=== PATIENT | female | born 1965 | race Caucasian/White ===

== ENCOUNTER → 2020-09-18 | Outpatient (CLI) | payer BC ==
[2020-09-18 19:55] LABS: BASOPHILS ABSOLUTE AUTO 0.08 K/mm3 (0.00-0.23); BASOPHILS PERCENT AUTO 1 % (0-2); EOSINOPHILS ABSOLUTE AUTO 0.22 K/mm3 (0.00-0.68); EOSINOPHILS PERCENT AUTO 4 % (0-6); Hematocrit 41.3 % (33.0-51.0); Hemoglobin 12.9 g/dL (11.5-16.0); IMMATURE GRAN ABSOLUTE AUTO 0.01 K/mm3 (0.00-0.10); IMMATURE GRAN PERCENT AUTO 0 % (0-1); LYMPHOCYTES ABSOLUTE AUTO 1.83 K/mm3 (0.84-5.20); LYMPHOCYTES PERCENT AUTO 30 % (21-46); MONOCYTES ABSOLUTE AUTO 0.62 K/mm3 (0.16-1.47); MONOCYTES PERCENT AUTO 10 % (4-13); Mean Corpuscular HGB 27.8 pg (26.0-34.0); Mean Corpuscular HGB Conc 31.2 g/dL (31.5-36.5); Mean Corpuscular Volume 89 fL (80-100); NEUTROPHILS ABSOLUTE AUTO 3.38 K/mm3 (1.96-9.15); NEUTROPHILS PERCENT AUTO 55 % (41-73); Platelet Count 234 K/mm3 (150-400); RDW Coefficient Variation 13.8 % (11.7-14.2); RDW Standard Deviation 45.2 fL (35.1-46.3); Red Blood Cell Count 4.64 M/mm3 (3.80-5.20); White Blood Cell Count 6.14 K/mm3 (4.00-11.30)
[2020-09-18 20:25] LABS: CHOL/HDL RATIO 2.8; Cholesterol 199 mg/dL (50-200); HDL Cholesterol 72 mg/dL (>39); LDL/HDL RATIO 1.5; Low Density Lipoprotein Chol 105 mg/dL (0-110); Triglycerides 108 mg/dL (30-160); Very Low Density Lipoprot Chol 21 mg/dL (6-32)
[2020-09-18 21:30] LABS: Albumin, Blood 3.9 g/dL (3.4-5.0); Albumin/Globulin Ratio 0.8 (0.8-1.8); Bilirubin, Total 0.3 mg/dL (0.1-1.0); Bun/Creatinine Ratio 20.6 (12.0-20.0); Calcium, Blood 8.4 mg/dL (8.5-10.1); Creatinine, Blood 1.02 mg/dL (0.40-1.00); Globulin, Blood 4.7 g/dL (2.2-4.0); Potassium, Blood 3.7 mmol/L (3.5-5.5); Total Protein, Blood 8.6 g/dL (6.4-8.2)
== END | disposition home or self-care (01) ==
LOC: LAB SHORT 19:18 → LAB 19:18
PROVIDERS: Family Medicine
DX: Z13.6 Encounter for screening for cardiovascular disorders (principal); I10 Essential (primary) hypertension
CPT/HCPCS: 80053; 80061; 85025

== ENCOUNTER → 2023-02-20 | Outpatient (CLI) | payer OTHER ==
[2023-02-20 19:49] LABS: CHOL/HDL RATIO 2.5; Cholesterol 173 mg/dL (50-200); HDL Cholesterol 69 mg/dL (>39); LDL/HDL RATIO 1.3; Low Density Lipoprotein Chol 92 mg/dL (0-110); Triglycerides 62 mg/dL (30-160); Very Low Density Lipoprot Chol 12 mg/dL (6-32)
== END | disposition home or self-care (01) ==
LOC: LAB SHORT 18:39 → LAB 18:39
PROVIDERS: Nurse Practitioner Family
DX: Z13.220 Encounter for screening for lipoid disorders (principal); Z13.29 Encounter for screening for other suspected endocrine disorder; J45.909 Unspecified asthma, uncomplicated; R73.01 Impaired fasting glucose
CPT/HCPCS: 80061; 83036; 83880; 84443

== ENCOUNTER 2023-03-05 08:47 | Inpatient (IN) | payer OTHER ==
[~2023-03-05] VITALS: Ht 160 cm; Wt 89.8 kg
[2023-03-05 09:36] LABS: BASOPHILS ABSOLUTE AUTO 0.09 K/mm3 (0.00-0.23); BASOPHILS PERCENT AUTO 1 % (0-2); EOSINOPHILS ABSOLUTE AUTO 0.66 K/mm3 (0.00-0.68); EOSINOPHILS PERCENT AUTO 8 % (0-6); Hematocrit 42.2 % (33.0-51.0); IMMATURE GRAN ABSOLUTE AUTO 0.06 K/mm3 (0.00-0.10); IMMATURE GRAN PERCENT AUTO 1 % (0-1); LYMPHOCYTES ABSOLUTE AUTO 1.82 K/mm3 (0.84-5.20); LYMPHOCYTES PERCENT AUTO 22 % (21-46); MONOCYTES PERCENT AUTO 12 % (4-13); Mean Corpuscular HGB 27.8 pg (26.0-34.0); Mean Corpuscular HGB Conc 30.8 g/dL (31.5-36.5); Mean Corpuscular Volume 90 fL (80-100); Mean Platelet Volume 12.4 fL (9.1-12.4); NEUTROPHILS ABSOLUTE AUTO 4.82 K/mm3 (1.96-9.15); NEUTROPHILS PERCENT AUTO 57 % (41-73); Platelet Count 220 K/mm3 (150-400); RDW Coefficient Variation 14.1 % (11.7-14.2); RDW Standard Deviation 46.5 fL (35.1-46.3); Red Blood Cell Count 4.68 M/mm3 (3.80-5.20); White Blood Cell Count 8.45 K/mm3 (4.00-11.30)
[2023-03-05 09:56] LABS: Albumin, Blood 3.7 g/dL (3.4-5.0); Albumin/Globulin Ratio 0.7 (0.8-1.8); Bilirubin, Total 0.4 mg/dL (0.1-1.0); Bun/Creatinine Ratio 17.5 (12.0-20.0); Calcium, Blood 8.9 mg/dL (8.5-10.1); Creatinine, Blood 0.8 mg/dL (0.40-1.00); Potassium, Blood 4.1 mmol/L (3.5-5.5); Total Protein, Blood 8.7 g/dL (6.4-8.2)
[2023-03-05 10:05] LABS: Influenza A, PCR NEGATIVE (NEGATIVE); Influenza B, PCR NEGATIVE (NEGATIVE); Resp Syncytial Virus, PCR NEGATIVE (NEGATIVE); SARS-Cov-2 (COVID-19) PCR, MMC NEGATIVE (NEGATIVE)
[2023-03-05 12:00] LABS: Adenovirus Not Detected (NOT DETECT); Bordetella pertussis Not Detected (NOT DETECT); Chlamydophila pneumoniae Not Detected (NOT DETECT); Coronavirus 229E Not Detected (NOT DETECT); Coronavirus HKU1 Not Detected (NOT DETECT); Coronavirus NL63 Not Detected (NOT DETECT); Coronavirus OC43 Not Detected (NOT DETECT); Human Metapneumovirus Not Detected (NOT DETECT); Human Rhinovirus/Enterovirus Detected (NOT DETECT); Influenza A/2009-H1 Not Detected (NOT DETECT); Influenza A/H1 Not Detected (NOT DETECT); Influenza A/H3 Not Detected (NOT DETECT); Influenza B Not Detected (NOT DETECT); Mycoplasma pneumoniae Not Detected (NOT DETECT); Parainfluenza Virus 1 Not Detected (NOT DETECT); Parainfluenza Virus 2 Not Detected (NOT DETECT); Parainfluenza Virus 3 Not Detected (NOT DETECT); Parainfluenza Virus 4 Not Detected (NOT DETECT); Respiratory Syncytial Virus Not Detected (NOT DETECT); SARS-Cov-2 (COVID-19), BioFire Not Detected (NOT DETECT)
[2023-03-05] MEDS ORDERED: GABA300 PO (12:58)
[2023-03-05] MEDS ORDERED: ALBU90OI INH (12:59)
[2023-03-05] MEDS ORDERED: FLUT1DIS5 INH (12:59)
[2023-03-05] MEDS ORDERED: BENZ100A PO (13:00)
[2023-03-05] MEDS ORDERED: Norco 10-325 T1 EACH PO (13:01)
[2023-03-05] MEDS ORDERED: BUME1 PO (13:02)
[2023-03-05] MEDS ORDERED: DULO60 PO (13:02)
[2023-03-05] MEDS ORDERED: CYCL10 PO (13:03)
[2023-03-05] MEDS ORDERED: POTA10T PO (13:04)
[2023-03-05] MEDS ORDERED: OMEP20ER PO (13:32)
[2023-03-05] MEDS ORDERED: DICLOFENAC SOD100 G1 TOP (13:57)
--- NOTE | 2023-03-05 16:50 | NUR ---
PT ADMITED TO ROOM 349 FROM ED AT 1249, WEARING 3L OXYGEN, SATS 96%- CURRENTLY RESP EVEN UNLABORED, DIM IN BASES, SLIGHT EXP WHEEZE. RR 18, STATES SHE FEELS MARKEDLY BETTER AND BREATHING BETTER SINCE NEBULIZER SHE HAD IN ED. DC ORIENTED TO ROOM SET UP AND CALL LIGHT. SPEAKING TO STAFF TO OBTAIN PT HISTORY
--- NOTE | 2023-03-05 16:53 | NUR ---
CALLED CERAMIC PAINTER 1445-PT HAD ACUTE ASTHMA ATTACK- RT BEGAN HOUR LONG CURRY GARNER, DR DR PLATT TO BEDSIDE ORDERD HYDRALAZINE 10MG IV FOR HTN, ORDER FOR 1 GM MAGNESIUM, AND SOLUMEDROL DOSE TO BE ADMIN NOW. PT SITTING AT EDGE OF BED, OXYGEN INCREASED FROM 3 TO 5L, (SATS ON 3L 92%)- PT TX TO PCU 15 AT 1505 RELATED TO ACUTE ASTHMATIC ATTACK IN WHICH DUONEB STARTED AND CONTINUED IN RESP DISTRESS WITH STRIDOR, RR 24, CLEARING VERY LITTLE AIR UPPER AIRWAY SEVERELY TIGHT AND DIM BASES. INSP/EXP STRIDOR/LOUD AUD WHEEZE.
--- NOTE | 2023-03-05 18:02 | NUR ---
SHIFT SUMMARY; TO PCU FROM MEDICAL FLOOR AFTER RAPID RESPONSE. 1 HOUR NEB IN PROGRESS WHEN BROUGHT TO ROOM. A/A/OX4, L/S WHEEZY T/O. RT AT BEDSIDE. 1G MAG STARTED PER ORDERS. SPEAKING FULL SENTENCES. SATS 95% ON 2L NC FOR REMAINDER OF SHIFT. AMBULATED TO RESTROOM WITH SBA WITHOUT DIFFICULTY. PLEASANT AND COOPERTIVE WITH CARE, WILL CONTINUE TO MONITOR AND TREAT UNTIL CHANGE OF SHIFT.
[2023-03-06 03:29] LABS: Hemoglobin 12.4 g/dL (11.5-16.0); Mean Corpuscular HGB Conc 31.8 g/dL (31.5-36.5); Mean Corpuscular Volume 88 fL (80-100); Mean Platelet Volume 12.1 fL (9.1-12.4); Platelet Count 210 K/mm3 (150-400); RDW Coefficient Variation 13.9 % (11.7-14.2); RDW Standard Deviation 44.7 fL (35.1-46.3); Red Blood Cell Count 4.43 M/mm3 (3.80-5.20); White Blood Cell Count 11.56 K/mm3 (4.00-11.30)
[2023-03-06 03:50] LABS: Bun/Creatinine Ratio 23.8 (12.0-20.0); Calcium, Blood 8.9 mg/dL (8.5-10.1); Creatinine, Blood 0.72 mg/dL (0.40-1.00)
--- NOTE | 2023-03-06 05:48 | NUR ---
Assumed care of patient at 1900. A/Ox4, independent in room. Reports headache 05/09, tylenol given with minimal relief. Maintains over 92% on 3-4L NC, LS wheeze t/o with ROBLES. Medicated for air hunger x1 this shift. ST on tele 110's. Denies CP/pressure, VSS. Strong +2 pulses t/o. Reports constipation, PRN ordered. Will report to dayshift RN.
--- NOTE | 2023-03-06 18:40 | NUR ---
SHIFT SUMMARY; ASSUMED CARE AT 0700. A/A/OX4 DURING SHIFT. BREATHING TX PER RT ORDERS, 3L 02 VIA NC. AMBULATES TO RESTROOM, REPOSITIONS SELF IN BED NEEDED, PLEASANT AND COOPERATIVE WITH CARE. L/S DIM-WHEEZY, VSS, WILL CONTINUE TO MONITOR AND TREAT UNTIL CHANGE OF SHIFT.
--- NOTE | 2023-03-07 05:02 | NUR ---
SHIFT SUMMARY PT IS A&OX4, SR ON TELE, IND IN THE ROOM, AND O2 HAS BEEN TITRAITED DOWN TO 2.5L NC FROM 4L NC W/ SP02 >90%. PT HAS HAD NO COMPLAINTS THIS SHIFT, COOPERATIVE WITH CARE, HAS NOT HAD SOB OR ANGINA, AND CALLS APPROPRIATELY. BED IN LOW, CALL LIGHT IN REACH. SEE NOTES FOR ANY UPDATES, I WILL CONTINUE TO PROVIDE CARE UNTIL SHIFT REPORT IS HANDED OFF TO THE ONCOMING SHIFT RN.
--- NOTE | 2023-03-07 18:31 | NUR ---
SHIFT SUMMARY NO ACUTE CHANGES THIS SHIFT. PT A&OX4. SP02>90% ON ON 2.5L AT START OF SHIFT. ABLE TO WEEN TO RA. CURRENTLY SITTING 95% ON RA. TELEMETRY SHOWS NSR, HR 70'S-90'S. VSS. PT DENIED PAIN. UP TO BATHROOM TO VOID INDEPENDENTLY. SITTING AT SIDE OF BED, COLORING. CALL LIGHT IN REACH.
--- NOTE | 2023-03-08 10:47 | NUR ---
ASSUMPTION OF CARE: PATIENT IS AFEBRILE, A/O X 4, NO CHEST PAIN/PRESSURE OR SOB. PATIENT WAS TAKEN OF NC AND SATURATING ABOVE 92%. SR 70-90'S. PATIENT HAD O2 HOME EVAL AND DID NOT NEED ANY AT THIS TIME. PATIENT WAS SEEN BY HOSPITALIST, PATIENT IN NO ACUTE DISTRESS, APPROPRIATE FOR DISCHARGE. PATIENT HAS NO QUESTIONS COMMENTS OR CONCERNS THAT HAVE NOT BEEN ADRESSED. PATIENT WAS EDUCATED FOR 30 MINUTES OR MORE, ON MEDICATIONS, DISEASE PROCESS, OXYGEN DEMAND, AND LIFESTYLE CHANGES. NO CONCERNS FROM THIS RN AT THIS TIME.
[2023-03-08] MEDS ORDERED: MIRALAX17 GM PO (11:49)
[2023-03-08] MEDS ORDERED: IPRAT-ALBUT 0.5-3 ML INH (11:49)
[2023-03-08] MEDS ORDERED: PRED20 PO (11:51)
--- NOTE | 2023-03-08 13:05 | NUR ---
DISCHARGE SUMMARY: PATIENT HAS BEEN DISCHARGED WITH PREDNISONE, DUONEB, MIRALAX PRESCRIPTIONS, AND DME OF NEBULIZER NO CHANGES FROM ASSUMPTION OF CARE EXCEPT: ON RA SATURATIONS >93%. NO ACTIVE OR PASSIVE SIGNS OF SOB. PATIENT WAS WALKED OUT BY THIS RN STILL DENYING CHEST PAIN PRESSURE OR SOB. MEDICATIONS FAXED TO [facility]. PATIENT ACCEPTABLE TO DIRECTOR TREASURER MEDICATIONS TOMORROW. MAILROOM COORDINATOR ALSO FAXED DME Rx TO [facility]. [facility] TO BRING NEBULIZER AFTER CALL TO PATIENT. PATIENT AWARE OF DISCHARGE INSTRUCTIONS ALONG WITH SON WHO WAS PRESENT. NO QUESTIONS COMMENTS OR CONCERNS FROM EITHER.
== END 2023-03-08 12:13 | disposition home or self-care (01) | DRG 193 ==
LOC: ER 08:47 → MEDS 10:50 → PCU 15:16
PROVIDERS: Emergency Medicine; ADMIT Internal Medicine
DX: J12.89 Other viral pneumonia (principal); J96.01 Acute respiratory failure with hypoxia; R65.10 Systemic inflammatory response syndrome (SIRS) of non-infectious origin without acute organ dysfunction; M54.9 Dorsalgia, unspecified; G89.29 Other chronic pain; J45.909 Unspecified asthma, uncomplicated; B97.10 Unspecified enterovirus as the cause of diseases classified elsewhere; B97.89 Other viral agents as the cause of diseases classified elsewhere; Z20.822 Contact with and (suspected) exposure to COVID-19; Z88.0 Allergy status to penicillin; Z88.1 Allergy status to other antibiotic agents
CPT/HCPCS: 0202U; 0241U; 36415; 70360; 71045; 80048; 80053; 84145; 84484; 85025; 85027; 93005; 93010; 94640; 94644; 94664; 94760; 94761; 94762; 96365; 96366; 96375; 99285-25; A9270; J0360; J1100; J1650; J1956; J2270; J2920; J2930; J3475

== ENCOUNTER → 2024-01-05 | Outpatient (CLI) | payer OTHER ==
[~2024-01-05] MED LIST: ALBU90OI INH; BENZ100A PO; BUME1 PO; CYCL10 PO; DICLOFENAC SOD100 G1 TOP; DULO60 PO; FLUT1DIS5 INH; GABA300 PO; IPRAT-ALBUT 0.5-3 ML INH; MIRALAX17 GM PO; Norco 10-325 T1 EACH PO; OMEP20ER PO; POTA10T PO; PRED20 PO
== END ==
LOC: EDSTATUS 09:01 → LAB 16:57 → LAB SHORT 16:57
DX: R05.1 Acute cough (principal)
CPT/HCPCS: 87070; 87205

== ENCOUNTER 2024-01-11 07:38 | Day surgery (SDC) | payer OTHER | END 2024-01-11 23:44 | disposition home or self-care (01) | LOC: CT 07:38 | DX: R07.89 Other chest pain (principal); Z88.0 Allergy status to penicillin; Z88.8 Allergy status to other drugs, medicaments and biological substances | CPT/HCPCS: 75574; Q9967 ==

== ENCOUNTER → 2024-03-24 | Outpatient (CLI) | payer OTHER | END | disposition home or self-care (01) | LOC: LAB 17:10 → LAB SHORT 17:10 | DX: I10 Essential (primary) hypertension (principal) ==

== ENCOUNTER → 2024-12-26 | Outpatient (CLI) | payer OTHER ==
[2024-12-27 10:58] LABS: BASOPHILS ABSOLUTE AUTO 0.05 K/mm3 (0.00-0.23); BASOPHILS PERCENT AUTO 1 % (0-2); EOSINOPHILS ABSOLUTE AUTO 0.18 K/mm3 (0.00-0.68); EOSINOPHILS PERCENT AUTO 3 % (0-6); Hematocrit 36.6 % (33.0-51.0); Hemoglobin 11.6 g/dL (11.5-16.0); IMMATURE GRAN ABSOLUTE AUTO 0.03 K/mm3 (0.00-0.10); IMMATURE GRAN PERCENT AUTO 1 % (0-1); LYMPHOCYTES ABSOLUTE AUTO 1.38 K/mm3 (0.84-5.20); LYMPHOCYTES PERCENT AUTO 24 % (21-46); MONOCYTES ABSOLUTE AUTO 0.63 K/mm3 (0.16-1.47); MONOCYTES PERCENT AUTO 11 % (4-13); Mean Corpuscular HGB 29.4 pg (26.0-34.0); Mean Corpuscular HGB Conc 31.7 g/dL (31.5-36.5); Mean Corpuscular Volume 93 fL (80-100); Mean Platelet Volume 12.4 fL (9.1-12.4); NEUTROPHILS PERCENT AUTO 61 % (41-73); Platelet Count 209 K/mm3 (150-400); RDW Coefficient Variation 13.4 % (11.7-14.2); RDW Standard Deviation 46.4 fL (35.1-46.3); Red Blood Cell Count 3.94 M/mm3 (3.80-5.20); White Blood Cell Count 5.77 K/mm3 (4.00-11.30)
[2024-12-27 12:02] LABS: Alanine Aminotransfer (ALT/SGP 26 U/L (12-78); Albumin, Blood 3.7 g/dL (3.4-5.0); Alk Phos 119 U/L (50-136); Anion Gap 9 mmol/L (3-11); Aspartate Aminotrans (AST/SGOT 21 U/L (12-37); Bilirubin, Total 0.2 mg/dL (0.1-1.0); Blood Urea Nitrogen 17 mg/dL (8-24); Bun/Creatinine Ratio 19.3 (12.0-20.0); CHOL/HDL RATIO 2.6; CO2, Blood 30 mmol/L (21-32); Calcium, Blood 8.5 mg/dL (8.5-10.1); Chloride, Blood 106 mmol/L (98-108); Cholesterol 228 mg/dL (50-200); Creatinine, Blood 0.88 mg/dL (0.40-1.00); Globulin, Blood 3.7 g/dL (2.2-4.0); Glomerular Filtration Rate 75 (60-); Glucose, Blood 79 mg/dL (70-99); HDL Cholesterol 89 mg/dL (>39); LDL/HDL RATIO 1.4; Low Density Lipoprotein Chol 123 mg/dL (0-110); Potassium, Blood 4.2 mmol/L (3.5-5.5); Sodium, Blood 141 mmol/L (136-145); Total Protein, Blood 7.4 g/dL (6.4-8.2); Triglycerides 80 mg/dL (30-160); Very Low Density Lipoprot Chol 16 mg/dL (6-32)
== END | disposition home or self-care (01) ==
LOC: LAB SHORT 18:00 → LAB 18:00
PROVIDERS: Nurse Practitioner Family
DX: E78.5 Hyperlipidemia, unspecified (principal)
CPT/HCPCS: 80053; 80061; 84443; 85025

== ENCOUNTER → 2025-03-27 | Outpatient (CLI) | payer OTHER ==
[2025-03-27 20:05] LABS: Phosphorus, Blood 3.9 mg/dL (2.5-4.9)
== END ==
LOC: LAB 19:30 → LAB SHORT 19:30
PROVIDERS: Nurse Practitioner Family
DX: E83.51 Hypocalcemia (principal)
CPT/HCPCS: 82306; 83735; 84100

== ENCOUNTER 2025-10-13 13:46 | Emergency (ER) | payer OTHER ==
[~2025-10-13] VITALS: Ht 162.6 cm; Wt 84.4 kg
[2025-10-13] MEDS ORDERED: Ipratropium/Albuterol SulF 2.5-0.5MG/3 ML Amp INH ONE (14:20)
[2025-10-13 14:52] LABS: BASOPHILS ABSOLUTE AUTO 0.03 K/mm3 (0.00-0.23); BASOPHILS PERCENT AUTO 1 % (0-2); EOSINOPHILS ABSOLUTE AUTO 0.12 K/mm3 (0.00-0.68); EOSINOPHILS PERCENT AUTO 2 % (0-6); Hematocrit 35.2 % (33.0-51.0); Hemoglobin 11.3 g/dL (11.5-16.0); IMMATURE GRAN ABSOLUTE AUTO 0.03 K/mm3 (0.00-0.10); IMMATURE GRAN PERCENT AUTO 1 % (0-1); LYMPHOCYTES ABSOLUTE AUTO 0.88 K/mm3 (0.84-5.20); LYMPHOCYTES PERCENT AUTO 14 % (21-46); MONOCYTES ABSOLUTE AUTO 0.74 K/mm3 (0.16-1.47); MONOCYTES PERCENT AUTO 12 % (4-13); Mean Corpuscular HGB Conc 32.1 g/dL (31.5-36.5); Mean Corpuscular Volume 93 fL (80-100); NEUTROPHILS ABSOLUTE AUTO 4.29 K/mm3 (1.96-9.15); NEUTROPHILS PERCENT AUTO 70 % (41-73); NRBC ABSOLUTE 0.00 K/mm3 (0.00-0.02); NRBC Auto 0.0 /100 WBC (0.0-0.2); Platelet Count 305 K/mm3 (150-400); RDW Coefficient Variation 15.0 % (11.7-14.2); RDW Standard Deviation 50.4 fL (35.1-46.3)
[2025-10-13 15:09] LABS: Alanine Aminotransfer (ALT/SGP 26.0 U/L (12-78); Albumin, Blood 2.8 g/dL (3.4-5.0); Albumin/Globulin Ratio 0.6 (0.8-1.8); Anion Gap 8.0 mmol/L (3-11); Aspartate Aminotrans (AST/SGOT 26.0 U/L (12-37); Bilirubin, Total 0.2 mg/dL (0.1-1.0); Blood Urea Nitrogen 13.0 mg/dL (8-24); CO2, Blood 30.0 mmol/L (21-32); Calcium, Blood 8.3 mg/dL (8.5-10.1); Chloride, Blood 102.0 mmol/L (98-108); Creatinine, Blood 0.83 mg/dL (0.40-1.00); Globulin, Blood 4.4 g/dL (2.2-4.0); Glucose, Blood 83.0 mg/dL (70-99); Potassium, Blood 3.6 mmol/L (3.5-5.5); Sodium, Blood 136.0 mmol/L (136-145); Total Protein, Blood 7.2 g/dL (6.4-8.2)
[2025-10-13 15:49] LABS: pH Blood Venous 7.40 (7.34-7.37)
[2025-10-13] MEDS ORDERED: Ipratropium Bromide INH 0.02% 0.5 mg/2.5ML Vial INH SCH (18:00)
[2025-10-13] MEDS ORDERED: Albuterol 2.5 MG/3 ML VIAL INH SCH (18:00)
[2025-10-13 20:30] VITALS: BP 119/71
== END 2025-10-13 20:35 | disposition home or self-care (01) ==
LOC: ER 13:46
PROVIDERS: Student in an Organized Health Care Education/Training Program
DX: J40 Bronchitis, not specified as acute or chronic (principal); Z79.52 Long term (current) use of systemic steroids; Z79.51 Long term (current) use of inhaled steroids; Z79.899 Other long term (current) drug therapy; Z88.0 Allergy status to penicillin; Z88.1 Allergy status to other antibiotic agents
CPT/HCPCS: 71046; 80053; 82803; 83880; 84484; 85025; 85379; 93005; 93010; 99285-25